=== PATIENT | female | born 1990 | race Hispanic/Latino ===

== ENCOUNTER 2020-09-30 09:45 | Day surgery (SDC) | payer MEDICAID, OTHER ==
[2020-09-30] MEDS ORDERED: hydrALAZINE 20 MG/ML VIAL SLOW IVP PRN (11:13)
[2020-09-30] MEDS ORDERED: Acetaminophen 500 MG TAB PO SCH (11:30)
[2020-09-30 12:01] LABS: Bilirubin Neg (Negative); Blood, Urine Negative (Negative); Clarity Clear (Clear); Glucose, Urine (Dipstick) Normal (Negative); Ketone, Urine Negative (Negative); Leukocyte Negative (Negative); Nitrite Negative (Negative); Protein, Urine (Dipstick) Negative (Neg-Trace); Specific Gravity, Urine 1.005 (1.002-1.036); Urobilinogen Normal mg/dL (Less than 2)
[2020-09-30 12:04] LABS: Urine Culture Reflex No No
[2020-09-30 12:09] LABS: RBC/HPF None Seen HPF (0-3); Squamous Epithelial 0-3 HPF (0-3); WBC/HPF None Seen HPF (0-3)
[2020-09-30 12:10] LABS: Bacteria/HPF 2+ HPF (None Seen)
[2020-09-30] MEDS ORDERED: Lactated Ringer's 500 ML IV SCH (12:30)
[2020-09-30] MEDS ORDERED: cefTRIAXone\\ROCEPHIN 1 GM in Sodium Chloride 0.9% 100 ML IVPB SCH (13:00)
== END 2020-09-30 15:20 | disposition home or self-care (01) ==
LOC: CSHLD/OP 09:45
PROVIDERS: ATTEND Family Medicine
DX: O99.891 Other specified diseases and conditions complicating pregnancy (principal); M54.5 Low back pain; R10.2 Pelvic and perineal pain; O24.410 Gestational diabetes mellitus in pregnancy, diet controlled; O23.43 Unspecified infection of urinary tract in pregnancy, third trimester; O23.593 Infection of other part of genital tract in pregnancy, third trimester; B96.89 Other specified bacterial agents as the cause of diseases classified elsewhere; O34.219 Maternal care for unspecified type scar from previous cesarean delivery; Z3A.35 35 weeks gestation of pregnancy; Z88.5 Allergy status to narcotic agent
CPT/HCPCS: 81001; 87086; 87480; 87510; 87660; 96361; 96365; 99284; J0696; J3490

== ENCOUNTER 2020-10-19 00:48 | Inpatient (IN) | payer MEDICAID, OTHER, SELFPAY ==
[2020-10-19 01:13] VITALS: BMI 48.7
[2020-10-19] MEDS ORDERED: hydrALAZINE 20 MG/ML VIAL SLOW IVP PRN ×2 (01:35→18:03)
[2020-10-19] MEDS ORDERED: Ondansetron PF 4 MG/2 ML Vial IVP PRN ×4 (01:36→18:03)
[2020-10-19] MEDS ORDERED: Acetaminophen 500 MG TAB PO SCH (01:45)
[2020-10-19] MEDS: Lactated Ringer's 1,000 ML IV SCH ×2 (02:00→17:32)
[2020-10-19 02:26] LABS: #Eosinphils 0.1 10x3/uL (0.0-0.5); #Monocytes 0.3 10x3/uL (0.0-1.1); #Neutrophils 3.5 10x3/uL (1.5-8.4); %Basophils 0.4 % (0.0-2.0); %Eosinophils 0.9 % (0.0-6.0); %Lymphocytes 29.8 % (18.0-47.0); %Monocytes 6.1 % (0.0-10.0); %Neutrophils 62.3 % (40.0-75.0); Hemoglobin 11.1 g/dL (12.0-15.5); Mean Corpuscular HGB CONC 34.6 g/dL (32.0-36.0); Mean Corpuscular Hemoglobin 29.4 pg (27.0-33.0); Mean Corpuscular Volume 85.1 fl (81.6-98.3); Mean Platelet Volume 10.7 fl (7.4-10.4); Platelet Count 207 10x3/uL (150-450); RBC Distribution Width 14.5 % (11.5-14.5); Red Blood Cell (RBC) Count 3.77 10x6/uL (3.90-5.03); White Blood Cell (WBC) Count 5.5 10x3/uL (3.5-10.5)
[2020-10-19 02:28] LABS: ALT (SGPT) Less than 6 U/L (8-55); AST (SGOT) 14 U/L (5-34); Albumin 2.8 g/dL (3.5-5.0); Alkaline Phosphatase 112 U/L (40-110); Anion Gap 12 mmol/L (10-20); BUN (Urea Nitrogen) 8 mg/dL (7.0-18.7); Bilirubin, Total 0.2 mg/dL (0.2-1.2); Calc. Creatinine Clearance 291 mL/min (70-130); Carbon Dioxide 22 mmol/L (22-29); Chloride 108 mmol/L (98-107); Globulin 3.1 g/dL (2.4-3.5); Glucose 85 mg/dL (70-105); Protein, Total 5.9 g/dL (6.0-8.3); Sodium 138 mmol/L (136-145)
[2020-10-19 02:33] LABS: Creatinine, Urine 32.91 mg/dL (47-110); Protein, Urine Random Quant Less than 10 mg/dL (1-14)
[2020-10-19] MEDS ORDERED: Acetaminophen 500 MG TAB PO PRN ×2 (03:28→08:27)
[2020-10-19] MEDS ORDERED: Famotidine/PF 20 mg/2ml Vial SLOW IVP PRN (03:28)
[2020-10-19] MEDS ORDERED: Bicitra 30 ML UDCUP PO PRN (03:28)
[2020-10-19] MEDS ORDERED: Promethazine HCl 25 MG/ML VIAL IM PRN ×4 (03:28→18:03)
[2020-10-19] MEDS ORDERED: CEFAZOLIN 2 GM in Premix Bag 1 BAG IVPB SCH (03:30)
[2020-10-19 04:56] LABS: Hep B Surf Ag Non-Reactive S/CO (NonReactive)
[2020-10-19 05:01] LABS: HBSAg Index 0.19 S/CO (0-0.99)
[2020-10-19 05:44] LABS: Syphilis Antibody Index 16.06 S/CO (<1.00 Non-Reactive)
[2020-10-19 05:45] LABS: Syphilis Antibody INDETERMINATE (Nonreactive)
[2020-10-19] MEDS ORDERED: CEFAZOLIN 3 GM in Sodium Chloride 0.9% 100 ML IVPB SCH (08:30)
[2020-10-19] MEDS ORDERED: NS w/ Oxytocin 30 units 0 ML ONE ×2 (09:48→12:24)
[2020-10-19] MEDS ORDERED: Fentanyl 100 MCG/2 ML VIAL ONE (12:49)
[2020-10-19] MEDS ORDERED: Oxytocin 10 UNITS/ML VIAL ONE ×2 (12:49→13:56)
[2020-10-19] MEDS ORDERED: Ketorolac Tromethamine 30 MG/ML VIAL ONE (12:49)
[2020-10-19] MEDS ORDERED: PHENYLEPHRINE-NS 100 MCG/ML 10 ML SYRINGE ONE (13:30)
[2020-10-19] MEDS ORDERED: Metoclopramide HCl 10 MG/2 ML VIAL ONE (13:52)
[2020-10-19] MEDS ORDERED: Dexamethasone 4 mg/ml Vial ONE (13:52)
[2020-10-19] MEDS ORDERED: Phenylephrine 10 MG/ML VIAL ONE (13:52)
[2020-10-19] MEDS ORDERED: Ondansetron PF 4 MG/2 ML Vial ONE (13:52)
[2020-10-19 14:36] LABS: SARS-CoV-2 PCR by NAA Not Detected (NotDetected)
[2020-10-19] MEDS ORDERED: Meperidine HCl/PF 25 MG/ML VIAL SLOW IVP PRN (14:52)
[2020-10-19] MEDS ORDERED: Promethazine HCl 25 MG SUPP PR PRN (14:52)
[2020-10-19] MEDS ORDERED: diphenhydrAMINE 25 MG CAP PO PRN ×2 (14:52→18:03)
[2020-10-19] MEDS ORDERED: fentaNYL Citrate/PF 2,000 MCG in Sodium Chloride 0.9% 60 ML IV PRN (14:52)
[2020-10-19] MEDS ORDERED: Zolpidem Tartrate 5 MG TAB PO PRN (14:52)
[2020-10-19] MEDS ORDERED: Naloxone HCl 0.4 mg/ml Vial IV PRN ×2 (14:52)
[2020-10-19] MEDS ORDERED: diphenhydrAMINE 50 MG/ML VIAL IM PRN (14:52)
[2020-10-19] MEDS ORDERED: diphenhydrAMINE 50 MG/ML VIAL IVP PRN ×2 (14:52)
[2020-10-19] MEDS ORDERED: Naloxone HCl 0.4 mg/ml Vial IVP PRN ×2 (14:52)
[2020-10-19] MEDS ORDERED: Ondansetron HCl/PF 4 MG/2 ML Vial IVP PRN (14:52)
[2020-10-19] MEDS ORDERED: Communication Order-Pharmacy FS SCH ×2 (15:00)
[2020-10-19] MEDS ORDERED: fentaNYL Citrate/PF 1,000 MCG in Sodium Chloride 0.9% 30 ML IV PRN (15:45)
[2020-10-19] MEDS ORDERED: Adacel (T-DAP) 0.5 ML SYRINGE IM ONE (18:03)
[2020-10-19] MEDS ORDERED: Bisacodyl 10 MG SUPP PR PRN (18:03)
[2020-10-19] MEDS ORDERED: Meperidine HCl/PF 25 MG/ML VIAL IM PRN (18:03)
[2020-10-19] MEDS ORDERED: HYDROcodone/Acetaminophen 5/325 mg Tablet PO PRN (18:03)
[2020-10-19] MEDS ORDERED: Ketorolac Tromethamine 30 MG/ML VIAL IVP PRN (20:00)
[2020-10-19] MEDS ORDERED: NS w/ Oxytocin 30 units 500 ML IV SCH (20:00)
[2020-10-19] MEDS: Ferrous Sulfate 325 MG TAB PO SCH (21:08)
[2020-10-19] MEDS: Docusate Calcium (SURFAK) 240 MG CAP PO SCH (21:12)
[2020-10-20] MEDS: Ketorolac Tromethamine 30 MG/ML VIAL IVP SCH ×3 (02:37→13:38)
[2020-10-20 07:25] LABS: Hemoglobin 9.1 g/dL (12.0-15.5); Mean Corpuscular HGB CONC 33.3 g/dL (32.0-36.0); Mean Corpuscular Volume 86.9 fl (81.6-98.3); Mean Platelet Volume 10.6 fl (7.4-10.4); Platelet Count 180 10x3/uL (150-450); RBC Distribution Width 14.6 % (11.5-14.5); Red Blood Cell (RBC) Count 3.14 10x6/uL (3.90-5.03); White Blood Cell (WBC) Count 6.1 10x3/uL (3.5-10.5)
[2020-10-20] MEDS: Docusate Calcium (SURFAK) 240 MG CAP PO SCH ×2 (07:43→22:15)
[2020-10-20] MEDS: Simethicone Chewable 80 MG TAB PO PRN ×2 (07:43→18:59)
[2020-10-20] MEDS: Ferrous Sulfate 325 MG TAB PO SCH ×2 (07:44→22:15)
[2020-10-20] MEDS: HYDROcodone/Acetaminophen 5/325 mg Tablet PO PRN ×3 (10:22→18:58)
[2020-10-20] MEDS: Ibuprofen 800 MG TAB PO SCH ×2 (13:52→22:16)
[2020-10-20] MEDS ORDERED: Ibuprofen 800 MG TAB PO SCH (22:00)
[2020-10-20] MEDS ORDERED: Milk Of Magnesia 30 ML UDCUP PO SCH (22:15)
[2020-10-21] MEDS: Simethicone Chewable 80 MG TAB PO PRN ×3 (05:06→16:52)
[2020-10-21] MEDS: HYDROcodone/Acetaminophen 5/325 mg Tablet PO PRN ×3 (05:06→16:52)
[2020-10-21] MEDS: Ibuprofen 800 MG TAB PO SCH ×3 (05:07→21:38)
[2020-10-21] MEDS: Docusate Calcium (SURFAK) 240 MG CAP PO SCH ×2 (08:37→21:37)
[2020-10-21] MEDS: Ferrous Sulfate 325 MG TAB PO SCH ×2 (08:37→21:37)
[2020-10-22] MEDS: HYDROcodone/Acetaminophen 5/325 mg Tablet PO PRN ×3 (00:32→14:03)
[2020-10-22] MEDS: Ibuprofen 800 MG TAB PO SCH (05:20)
[2020-10-22] MEDS: Ferrous Sulfate 325 MG TAB PO SCH (09:33)
[2020-10-22] MEDS: Docusate Calcium (SURFAK) 240 MG CAP PO SCH (09:33)
[2020-10-22 09:44] VITALS: BP 122/74; TEMP 98
[2020-10-22] MEDS ORDERED: Milk Of Magnesia 30 ML UDCUP PO SCH (12:30)
== END 2020-10-22 14:15 | disposition home or self-care (01) | DRG 788 ==
LOC: CSHLD/OP 00:48 → CSHLD 09:51 → CSHPP 17:45
PROVIDERS: ADMIT Family Medicine; ATTEND Family Medicine
PROC: 10D00Z1 Extraction of Products of Conception, Low, Open Approach (ICD-10-PCS; principal; 2020-10-19)
DX: O34.211 Maternal care for low transverse scar from previous cesarean delivery (principal); Z3A.37 37 weeks gestation of pregnancy; Z37.0 Single live birth; O13.4 Gestational [pregnancy-induced] hypertension without significant proteinuria, complicating childbirth; O99.214 Obesity complicating childbirth; E66.9 Obesity, unspecified; Z20.822 Contact with and (suspected) exposure to COVID-19
CPT/HCPCS: 51702; 80053; 82570; 84156; 85025; 85027; 86593; 86780; 86850; 86900; 86901; 87340; 87635; 99285; J0690; J1100; J1885; J2370; J2405; J2590; J2765; J3010; J3490; S0028; U0003; U0005

== ENCOUNTER 2021-11-25 05:54 | Emergency (ER) | payer MEDICAID, OTHER, SELFPAY ==
[2021-11-25] MEDS ORDERED: Acetaminophen 500 MG TAB ONE (06:34)
[2021-11-25 07:04] LABS: Bilirubin Neg (Negative); Blood, Urine 10 (Negative); Clarity Clear (Clear); Glucose, Urine (Dipstick) Normal (Negative); Ketone, Urine 15 mg/dL (Negative); Leukocyte 100 (Negative); Nitrite Negative (Negative); Protein, Urine (Dipstick) 15 mg/dl (Neg-Trace); Urobilinogen Normal mg/dL (Less than 2)
[2021-11-25 07:11] LABS: ALT (SGPT) 7 U/L (8-55); AST (SGOT) 16 U/L (5-34); Albumin 3.5 g/dL (3.5-5.0); Alkaline Phosphatase 46 U/L (40-110); Anion Gap 14 mmol/L (10-20); BUN (Urea Nitrogen) 8 mg/dL (7.0-18.7); Bilirubin, Total 0.2 mg/dL (0.2-1.2); Calc. Creatinine Clearance 0 mL/min (70-130); Carbon Dioxide 21 mmol/L (22-29); Chloride 107 mmol/L (98-107); Globulin 3.1 g/dL (2.4-3.5); Glucose 96 mg/dL (70-105); Potassium 3.8 mmol/L (3.5-5.1); Protein, Total 6.6 g/dL (6.0-8.3); Sodium 138 mmol/L (136-145)
[2021-11-25 07:16] LABS: Bacteria/HPF Rare-Few HPF (None Seen); RBC/HPF 0-3 HPF (0-3)
[2021-11-25 07:17] LABS: #Eosinphils 0.1 10x3/uL (0.0-0.5); #Monocytes 0.4 10x3/uL (0.0-1.1); #Neutrophils 2.7 10x3/uL (1.5-8.4); %Basophils 0.2 % (0.0-2.0); %Lymphocytes 36.9 % (18.0-47.0); %Monocytes 7.3 % (0.0-10.0); %Neutrophils 53.4 % (40.0-75.0); Hemoglobin 9.4 g/dL (12.0-15.5); Mean Corpuscular HGB CONC 30.6 g/dL (32.0-36.0); Mean Corpuscular Hemoglobin 22.3 pg (27.0-33.0); Mean Corpuscular Volume 72.9 fl (81.6-98.3); Platelet Count 372 10x3/uL (150-450); RBC Distribution Width 21.9 % (11.5-14.5); Red Blood Cell (RBC) Count 4.21 10x6/uL (3.90-5.03); White Blood Cell (WBC) Count 5.1 10x3/uL (3.5-10.5)
== END 2021-11-25 09:04 | disposition home or self-care (01) ==
LOC: CSHERS 05:54
DX: O9A.211 Injury, poisoning and certain other consequences of external causes complicating pregnancy, first trimester (principal); O20.0 Threatened abortion; O99.891 Other specified diseases and conditions complicating pregnancy; R55 Syncope and collapse; Z3A.01 Less than 8 weeks gestation of pregnancy
CPT/HCPCS: 76856; 80053; 81003; 81015; 84702; 85025; 93005

== ENCOUNTER 2022-01-26 20:04 | Emergency (ER) | payer OTHER, SELFPAY ==
[2022-01-26] MEDS ORDERED: Acetaminophen 325 MG TAB ONE (20:38)
[2022-01-26 20:54] LABS: Mean Corpuscular HGB CONC 33.9 g/dL (32.0-36.0); Mean Corpuscular Hemoglobin 28.2 pg (27.0-33.0); Mean Corpuscular Volume 83.3 fl (81.6-98.3); Mean Platelet Volume 9.8 fl (7.4-10.4); Platelet Count 257 10x3/uL (150-450); RBC Distribution Width 17.9 % (11.5-14.5); Red Blood Cell (RBC) Count 4.25 10x6/uL (3.90-5.03); White Blood Cell (WBC) Count 4.8 10x3/uL (3.5-10.5)
[2022-01-26 20:55] LABS: MDiff Complete? YES
[2022-01-26 20:57] LABS: ALT (SGPT) 7 U/L (8-55); AST (SGOT) 12 U/L (5-34); Albumin 3.6 g/dL (3.5-5.0); Alkaline Phosphatase 42 U/L (40-110); Anion Gap 15 mmol/L (10-20); BUN (Urea Nitrogen) 7 mg/dL (7.0-18.7); Bilirubin, Total 0.2 mg/dL (0.2-1.2); Calc. Creatinine Clearance 0 mL/min (70-130); Calcium 9.3 mg/dL (7.8-10.44); Carbon Dioxide 21 mmol/L (22-29); Chloride 101 mmol/L (98-107); Estimated GFR 126; Globulin 3.1 g/dL (2.4-3.5); Glucose 86 mg/dL (70-105); Potassium 4.2 mmol/L (3.5-5.1); Protein, Total 6.7 g/dL (6.0-8.3); Sodium 133 mmol/L (136-145)
[2022-01-26 21:18] LABS: Bilirubin Neg (Negative); Blood, Urine Negative (Negative); Clarity Clear (Clear); Glucose, Urine (Dipstick) Normal (Negative); Ketone, Urine 5 mg/dL (Negative); Leukocyte 25 (Negative); Nitrite Negative (Negative); Protein, Urine (Dipstick) Negative (Neg-Trace); Specific Gravity, Urine 1.005 (1.002-1.036); Urobilinogen Normal mg/dL (Less than 2)
[2022-01-26 21:51] LABS: SARS-CoV-2 NAA Rapid Test Not Detected (NotDetected)
[2022-01-26 21:57] LABS: Bacteria/HPF 1+ HPF (None Seen); RBC/HPF 0-3 HPF (0-3)
[2022-01-26 22:14] LABS: Platelet Morphology Comment Appears Adequate
[2022-01-26 22:16] LABS: RBC Morphology Normal
[2022-01-26 22:18] LABS: Band 10 % (5-11); Eosinophils 1 % (0-10); Lymphocytes 16 % (21-51); Monocytes 8 % (0-10); Neutrophil 64 % (42-75)
== END 2022-01-26 22:44 | disposition home or self-care (01) ==
LOC: CSHERS 20:04
DX: O98.512 Other viral diseases complicating pregnancy, second trimester (principal); B34.9 Viral infection, unspecified; O99.612 Diseases of the digestive system complicating pregnancy, second trimester; R19.7 Diarrhea, unspecified; O23.42 Unspecified infection of urinary tract in pregnancy, second trimester; N39.0 Urinary tract infection, site not specified; Z3A.17 17 weeks gestation of pregnancy; Z20.822 Contact with and (suspected) exposure to COVID-19
CPT/HCPCS: 36415; 80053; 81003; 81015; 83605; 85025; 87040; 87086; 96360; U0002

== ENCOUNTER 2022-04-09 19:02 | Day surgery (SDC) | payer OTHER ==
[2022-04-09 23:31] LABS: #Eosinphils 0.1 10x3/uL (0.0-0.5); #Monocytes 0.4 10x3/uL (0.0-1.1); #Neutrophils 3.8 10x3/uL (1.5-8.4); %Basophils 0.3 % (0.0-2.0); %Eosinophils 1.4 % (0.0-6.0); %Lymphocytes 31.3 % (18.0-47.0); %Monocytes 6.7 % (0.0-10.0); %Neutrophils 59.4 % (40.0-75.0); Hemoglobin 11.4 g/dL (12.0-15.5); Mean Corpuscular HGB CONC 33.8 g/dL (32.0-36.0); Mean Corpuscular Hemoglobin 29.8 pg (27.0-33.0); Mean Corpuscular Volume 88.2 fl (81.6-98.3); Mean Platelet Volume 9.7 fl (7.4-10.4); Platelet Count 285 10x3/uL (150-450); RBC Distribution Width 14.1 % (11.5-14.5); Red Blood Cell (RBC) Count 3.82 10x6/uL (3.90-5.03); White Blood Cell (WBC) Count 6.4 10x3/uL (3.5-10.5)
[2022-04-09 23:48] LABS: ALT (SGPT) Less than 6 U/L (8-55); AST (SGOT) 10 U/L (5-34); Albumin 3.3 g/dL (3.5-5.0); Alkaline Phosphatase 55 U/L (40-110); Anion Gap 14 mmol/L (10-20); BUN (Urea Nitrogen) 8 mg/dL (7.0-18.7); Bilirubin, Total 0.2 mg/dL (0.2-1.2); Calc. Creatinine Clearance 0 mL/min (70-130); Carbon Dioxide 21 mmol/L (22-29); Chloride 108 mmol/L (98-107); Estimated GFR 125; Globulin 3.5 g/dL (2.4-3.5); Glucose 78 mg/dL (70-105); Potassium 4.2 mmol/L (3.5-5.1); Protein, Total 6.8 g/dL (6.0-8.3); Sodium 139 mmol/L (136-145)
[2022-04-09] MEDS ORDERED: Metoclopramide HCl 10 MG/2 ML VIAL ONE (23:50)
[2022-04-10 01:54] LABS: Bilirubin Neg (Negative); Blood, Urine Negative (Negative); Clarity Clear (Clear); Glucose, Urine (Dipstick) Normal (Negative); Ketone, Urine Negative (Negative); Leukocyte 100 (Negative); Nitrite Negative (Negative); Protein, Urine (Dipstick) Negative (Neg-Trace); Urobilinogen Normal mg/dL (Less than 2)
[2022-04-10 02:02] LABS: Bacteria/HPF 1+ HPF (None Seen); RBC/HPF 0-3 HPF (0-3); Squamous Epithelial 0-3 HPF (0-3)
[2022-04-10] MEDS ORDERED: hydrALAZINE 20 MG/ML VIAL SLOW IVP PRN (03:20)
== END 2022-04-10 03:18 | disposition home health service (06) ==
LOC: CSHERS 19:02 → CSHLD/OP 04-10 02:16
PROVIDERS: ATTEND Family Medicine
DX: O36.8130 Decreased fetal movements, third trimester, not applicable or unspecified (principal); Z3A.28 28 weeks gestation of pregnancy; O23.43 Unspecified infection of urinary tract in pregnancy, third trimester; N39.0 Urinary tract infection, site not specified; O13.3 Gestational [pregnancy-induced] hypertension without significant proteinuria, third trimester; Z79.899 Other long term (current) drug therapy; Z98.890 Other specified postprocedural states
CPT/HCPCS: 80053; 81003; 81015; 85025; 87086; 99282; J2765

== ENCOUNTER 2022-05-11 23:22 | Day surgery (SDC) | payer OTHER ==
[2022-05-12 00:33] VITALS: BMI 47.3
[2022-05-12] MEDS ORDERED: hydrALAZINE 20 MG/ML VIAL SLOW IVP PRN (00:47)
[2022-05-12 01:13] LABS: Bilirubin Neg (Negative); Blood, Urine 250 (Negative); Clarity Sl. Cloudy (Clear); Glucose, Urine (Dipstick) Normal (Negative); Ketone, Urine 15 mg/dL (Negative); Leukocyte Negative (Negative); Nitrite Negative (Negative); Protein, Urine (Dipstick) Negative (Neg-Trace); Specific Gravity, Urine 1.015 (1.005-1.030); Urobilinogen Normal mg/dL (Less than 2)
[2022-05-12] MEDS ORDERED: Lactated Ringer's 1,000 ML IV SCH (01:15)
[2022-05-12 01:16] LABS: Urine Culture Reflex No No
[2022-05-12 01:29] LABS: RBC/HPF 0-3 HPF (0-3)
[2022-05-12 01:30] LABS: Bacteria/HPF 1+ HPF (None Seen); Squamous Epithelial 0-3 HPF (0-3); Transitional Epithelial 0-3 HPF (None Seen); WBC/HPF 0-3 HPF (0-3)
[2022-05-12] MEDS ORDERED: HYDROcodone/Acetaminophen 10/325 mg Tablet PO SCH (01:30)
[2022-05-12 01:50] LABS: #Eosinphils 0.1 10x3/uL (0.0-0.5); #Monocytes 0.5 10x3/uL (0.0-1.1); #Neutrophils 4.8 10x3/uL (1.5-8.4); %Basophils 0.1 % (0.0-2.0); %Eosinophils 1.3 % (0.0-6.0); %Lymphocytes 22.4 % (18.0-47.0); %Monocytes 6.9 % (0.0-10.0); %Neutrophils 68.9 % (40.0-75.0); Hemoglobin 11.7 g/dL (12.0-15.5); Mean Corpuscular HGB CONC 35.3 g/dL (32.0-36.0); Mean Corpuscular Hemoglobin 31.1 pg (27.0-33.0); Mean Platelet Volume 10.1 fl (7.4-10.4); Platelet Count 318 10x3/uL (150-450); RBC Distribution Width 14.5 % (11.5-14.5); Red Blood Cell (RBC) Count 3.76 10x6/uL (3.90-5.03)
[2022-05-12 02:05] LABS: ALT (SGPT) Less than 6 U/L (8-55); AST (SGOT) 16 U/L (5-34); Albumin 3.2 g/dL (3.5-5.0); Alkaline Phosphatase 74 U/L (40-110); Anion Gap 15 mmol/L (10-20); BUN (Urea Nitrogen) 9 mg/dL (7.0-18.7); Bilirubin, Total 0.2 mg/dL (0.2-1.2); Calc. Creatinine Clearance 283 mL/min (70-130); Carbon Dioxide 19 mmol/L (22-29); Chloride 108 mmol/L (98-107); Estimated GFR 127; Globulin 3.1 g/dL (2.4-3.5); Glucose 92 mg/dL (70-105); Potassium 4.1 mmol/L (3.5-5.1); Protein, Total 6.3 g/dL (6.0-8.3); Sodium 138 mmol/L (136-145)
== END 2022-05-12 04:26 | disposition home or self-care (01) ==
LOC: CSHLD/OP 23:22
PROVIDERS: ATTEND Family Medicine
DX: O24.419 Gestational diabetes mellitus in pregnancy, unspecified control (principal); O09.43 Supervision of pregnancy with grand multiparity, third trimester; O99.013 Anemia complicating pregnancy, third trimester; D64.9 Anemia, unspecified; O36.8130 Decreased fetal movements, third trimester, not applicable or unspecified; O46.93 Antepartum hemorrhage, unspecified, third trimester; O99.891 Other specified diseases and conditions complicating pregnancy; M54.9 Dorsalgia, unspecified; R00.0 Tachycardia, unspecified; Z79.899 Other long term (current) drug therapy; Z88.5 Allergy status to narcotic agent; Z3A.32 32 weeks gestation of pregnancy
CPT/HCPCS: 36416; 76819; 80053; 81001; 85025; 86850; 86900; 86901; 87086; 96360; 96361; 99285

== ENCOUNTER 2022-09-26 15:54 | Emergency (ER) | payer OTHER ==
[~2022-09-26 15:54] MED LIST: Iopamidol 300 61% 100 ML VIAL FS ONE
[2022-09-26] MEDS ORDERED: Ketorolac Tromethamine 30 MG/ML VIAL ONE (16:47)
[2022-09-26] MEDS ORDERED: Ondansetron PF 4 MG/2 ML Vial ONE (16:47)
[2022-09-26 17:35] LABS: Bilirubin Neg (Negative); Blood, Urine Negative (Negative); Clarity Clear (Clear); Glucose, Urine (Dipstick) Normal (Negative); Ketone, Urine 50 mg/dL (Negative); Leukocyte Negative (Negative); Nitrite Negative (Negative); Protein, Urine (Dipstick) Negative (Neg-Trace); Urobilinogen Normal mg/dL (Less than 2)
[2022-09-26 17:40] LABS: #Eosinphils 0.1 10x3/uL (0.0-0.5); #Monocytes 0.4 10x3/uL (0.0-1.1); #Neutrophils 3.8 10x3/uL (1.5-8.4); %Basophils 0.2 % (0.0-2.0); %Eosinophils 2.3 % (0.0-6.0); %Lymphocytes 28.3 % (18.0-47.0); %Neutrophils 61.9 % (40.0-75.0); Mean Corpuscular HGB CONC 33.9 g/dL (32.0-36.0); Mean Corpuscular Hemoglobin 28.1 pg (27.0-33.0); Mean Corpuscular Volume 82.7 fl (81.6-98.3); Mean Platelet Volume 10.2 fl (7.4-10.4); Platelet Count 328 10x3/uL (150-450); RBC Distribution Width 13.7 % (11.5-14.5); Red Blood Cell (RBC) Count 4.63 10x6/uL (3.90-5.03); White Blood Cell (WBC) Count 6.1 10x3/uL (3.5-10.5)
[2022-09-26 17:42] LABS: ALT (SGPT) 24 U/L (8-55); AST (SGOT) 25 U/L (5-34); Alkaline Phosphatase 51 U/L (40-110); Anion Gap 16 mmol/L (10-20); BUN (Urea Nitrogen) 8 mg/dL (7.0-18.7); Bilirubin, Total 0.3 mg/dL (0.2-1.2); Calc. Creatinine Clearance 0 mL/min (70-130); Calcium 9.2 mg/dL (7.8-10.44); Carbon Dioxide 22 mmol/L (22-29); Chloride 106 mmol/L (98-107); Estimated GFR 121; Globulin 3.4 g/dL (2.4-3.5); Glucose 85 mg/dL (70-105); Lipase 17 U/L (8-78); Potassium 3.6 mmol/L (3.5-5.1); Protein, Total 7.4 g/dL (6.0-8.3); Sodium 140 mmol/L (136-145)
== END 2022-09-26 18:26 | disposition home or self-care (01) ==
LOC: CSHERS 15:54
DX: K43.9 Ventral hernia without obstruction or gangrene (principal); M54.41 Lumbago with sciatica, right side
CPT/HCPCS: 74177; 80053; 81003; 83690; 85025; 96374; 96375; J1885; J2405; Q9967

== ENCOUNTER 2023-09-17 21:23 | Emergency (ER) | payer SELFPAY ==
[2023-09-17] MEDS ORDERED: Ketorolac Tromethamine 30 MG (1 mL) VIAL ONE (22:00)
[2023-09-17] MEDS ORDERED: Ondansetron PF 4 MG/2 ML Vial ONE (22:00)
[2023-09-17 22:32] LABS: #Eosinphils 0.2 10x3/uL (0.0-0.5); #Monocytes 0.5 10x3/uL (0.0-1.1); #Neutrophils 4.9 10x3/uL (1.5-8.4); %Basophils 0.2 % (0.0-2.0); %Eosinophils 1.9 % (0.0-6.0); %Lymphocytes 32.6 % (18.0-47.0); %Monocytes 5.4 % (0.0-10.0); %Neutrophils 59.7 % (40.0-75.0); Mean Corpuscular HGB CONC 30.6 g/dL (32.0-36.0); Mean Corpuscular Volume 75.2 fl (81.6-98.3); Mean Platelet Volume 9.4 fl (7.4-10.4); Platelet Count 444 10x3/uL (150-450); RBC Distribution Width 17.1 % (11.5-14.5); Red Blood Cell (RBC) Count 4.79 10x6/uL (3.90-5.03); White Blood Cell (WBC) Count 8.3 10x3/uL (3.5-10.5)
[2023-09-17 22:35] LABS: ALT (SGPT) 23 U/L (8-55); AST (SGOT) 38 U/L (5-34); Bilirubin, Total 0.3 mg/dL (0.2-1.2); Calc. Creatinine Clearance 0 mL/min (70-130); Chloride 105 mmol/L (98-107); Sodium 139 mmol/L (136-145)
[2023-09-17 22:40] LABS: Bilirubin Neg (Negative); Blood, Urine 25 (Negative); Clarity Clear (Clear); Glucose, Urine (Dipstick) Normal (Negative); Ketone, Urine Negative (Negative); Leukocyte 500 (Negative); Nitrite Negative (Negative); Protein, Urine (Dipstick) 15 mg/dl (Neg-Trace); Urobilinogen Normal mg/dL (Less than 2)
[2023-09-17 22:58] LABS: Bacteria/HPF 1+ HPF (None Seen); CAUTI Indications for Culture Pelvic or flank pain; RBC/HPF 0-3 HPF (0-3)
[2023-09-17 22:59] LABS: Urine Culture Reflex Yes Yes
[2023-09-17 23:04] LABS: Albumin 4.1 g/dL (3.5-5.0); Alkaline Phosphatase 83 U/L (40-110); Anion Gap 14 mmol/L (10-20); BUN (Urea Nitrogen) 12 mg/dL (7.0-18.7); Calcium 8.9 mg/dL (7.8-10.44); Carbon Dioxide 24 mmol/L (22-29); Estimated GFR 110; Globulin 3.2 g/dL (2.4-3.5); Glucose 92 mg/dL (70-105); Lipase 16 U/L (8-78); Potassium 4.3 mmol/L (3.5-5.1); Protein, Total 7.3 g/dL (6.0-8.3)
== END 2023-09-17 23:35 | disposition home or self-care (01) ==
LOC: CSHERS 21:23
DX: K43.2 Incisional hernia without obstruction or gangrene (principal)
CPT/HCPCS: 74177; 80053; 81001; 83605; 83690; 85025; 87086; 96374; 96375; J1885; J2405; Q9967

== ENCOUNTER 2024-05-19 01:18 | Emergency (ER) | payer SELFPAY ==
[2024-05-19 01:55] LABS: Bilirubin Neg (Negative); Blood, Urine Negative (Negative); Clarity Clear (Clear); Glucose, Urine (Dipstick) Normal (Negative); Ketone, Urine Negative (Negative); Leukocyte Negative (Negative); Nitrite Negative (Negative); Protein, Urine (Dipstick) Negative (Neg-Trace); Urobilinogen Normal mg/dL (Less than 2)
[2024-05-19 02:20] LABS: Bacteria/HPF 1+ HPF (None Seen); CAUTI Indications for Culture Pelvic or flank pain; RBC/HPF 0-3 HPF (0-3); Squamous Epithelial 0-3 HPF (0-3); WBC/HPF 0-3 HPF (0-3)
[2024-05-19 02:21] LABS: Urine Culture Reflex No No
[2024-05-19 02:31] LABS: #Basophils 0.01 10x3/uL (0.0-0.2); #Eosinophils 0.14 10x3/uL (0.0-0.5); #Monocytes 0.47 10x3/uL (0.0-1.1); #Neutrophils 4.62 10x3/uL (1.5-8.4); %Basophils 0.1 % (0.0-2.0); %Eosinophils 1.8 % (0.0-6.0); %Lymphocytes 34.1 % (18.0-47.0); %Monocytes 5.9 % (0.0-10.0); %Neutrophils 57.7 % (40.0-75.0); Hematocrit 30.8 % (34.9-44.5); Hemoglobin 8.8 g/dL (12.0-15.5); Mean Corpuscular HGB CONC 28.6 g/dL (32.0-36.0); Mean Corpuscular Hemoglobin 20.8 pg (27.0-33.0); Mean Corpuscular Volume 72.6 fL (81.6-98.3); Mean Platelet Volume 9.1 fL (7.4-10.4); Platelet Count 517 10x3/uL (150-450); RBC Distribution Width 18.3 % (11.5-14.5); Red Blood Cell (RBC) Count 4.24 10x6/uL (3.90-5.03)
[2024-05-19 02:32] LABS: BHCG - Serum Negative (NEGATIVE); Pregs Control Background? CLEAR/WHITE (CLR/WHITE); Pregs Control Bar Appear? YES (CONTROL BAR)
[2024-05-19 02:42] LABS: ALT (SGPT) 129 U/L (8-55); AST (SGOT) 151 U/L (5-34); Albumin 3.3 g/dL (3.5-5.0); Alkaline Phosphatase 78 U/L (40-110); Anion Gap 14 mmol/L (10-20); BUN (Urea Nitrogen) 11 mg/dL (7.0-18.7); Bilirubin, Total 0.2 mg/dL (0.2-1.2); Calc. Creatinine Clearance 0 mL/min (70-130); Calcium 9.3 mg/dL (7.8-10.44); Carbon Dioxide 25 mmol/L (22-29); Chloride 105 mmol/L (98-107); Estimated GFR 114; Glucose 116 mg/dL (70-105); Lipase 35 U/L (8-78); Potassium 4.2 mmol/L (3.5-5.1); Protein, Total 7.3 g/dL (6.0-8.3); Sodium 140 mmol/L (136-145)
[2024-05-19] MEDS ORDERED: Ketorolac Tromethamine 30 MG (1 mL) VIAL ONE (02:50)
[2024-05-19 03:34] LABS: Hypochromia SLIGHT = 6-15 cells (100X) (0-5/hpf); Microcytosis SLIGHT = 6-15 cells (100X) (0-5/hpf)
[2024-05-19 03:35] LABS: Anisocytosis SLIGHT = 6-15 cells (100X) (0-5/hpf); Platelet Adequacy Comment Appears Increased; Polychromasia SLIGHT = 2-3 cells (100X) (0-2/hpf)
== END 2024-05-19 05:34 | disposition home or self-care (01) ==
LOC: CSHERS 01:18
DX: R10.9 Unspecified abdominal pain (principal)
CPT/HCPCS: 36415; 74176; 80053; 81001; 83605; 83690; 84703; 85025; 96372; J1885